=== PATIENT | female | born 1970 | race American Indian/Alaskan Native ===

== ENCOUNTER → 2016-08-05 | Outpatient (CLI) | payer OTHER ==
--- NOTE | 2016-08-05 11:17 | XR ---
EXAMINATION TYPE: XR shoulder complete RT DATE OF EXAM: 08/05/2016 11:13 AM CLINICAL HISTORY: Falling injury with right shoulder pain. TECHNIQUE: Three views of the right shoulder are obtained. COMPARISON: None. FINDINGS: There is no acute fracture/dislocation evident in the right shoulder. The acromioclavicul ar and glenohumeral joint spaces appear within normal limits. The visualized ribs are intact and unr emarkable. IMPRESSION: There is no acute fracture or dislocation in the right shoulder.
--- NOTE | 2016-08-05 11:31 | XR ---
Cervical spine HISTORY: Slip and fall, pain 5 views of the cervical spine and 6 images Cervical vertebral bodies show preserved height and alignment, bone mineralization. Disc spaces and p revertebral soft tissues are normal. No significant foraminal encroachment. IMPRESSION: No acute fracture or subluxation is evident
== END | disposition home or self-care (01) ==
LOC: LABWHC1 10:10
PROVIDERS: ATTEND Emergency Medicine
DX: N91.2 Amenorrhea, unspecified (principal); S43.401A Unspecified sprain of right shoulder joint, initial encounter
CPT/HCPCS: 72050; 81025

== ENCOUNTER → 2016-12-25 | Outpatient (CLI) | payer OTHER | END | disposition home or self-care (01) | LOC: RADXRMAIN 10:54 | PROVIDERS: ATTEND Internal Medicine | DX: Z53.9 Procedure and treatment not carried out, unspecified reason (principal) ==

== ENCOUNTER → 2017-02-16 | Outpatient (CLI) | payer OTHER ==
--- NOTE | 2017-02-16 16:02 | XR ---
Left foot HISTORY: Left foot pain 3 views of the left foot There is a plantar calcaneal spur. Enthesophyte present at the insertion of the Achilles tendon. Bone mineralization, joint spaces and alignment are maintained. There is mild hypertrophic change at the second metatarsophalangeal joint, first metatarsophalangeal joint. 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 Plantar calcane al spur.
== END | disposition home or self-care (01) ==
LOC: RADXRYALE 15:27
PROVIDERS: ATTEND Internal Medicine
DX: M19.072 Primary osteoarthritis, left ankle and foot (principal); M77.32 Calcaneal spur, left foot

== ENCOUNTER → 2020-03-29 | Outpatient (CLI) | payer OTHER | END | disposition home or self-care (01) | LOC: LABWHC1 11:25 | PROVIDERS: ATTEND Internal Medicine | DX: R05 Cough (principal); J00 Acute nasopharyngitis [common cold] | CPT/HCPCS: U0003; C9803 ==

== ENCOUNTER 2021-01-15 11:51 | Emergency (ER) | payer OTHER ==
[2021-01-15 12:12] VITALS: RESP 20
[2021-01-15] MEDS ORDERED: MORPHINE SULFATE 4 MG/ML SYRINGE IM STA (12:33)
--- NOTE | 2021-01-15 13:29 | XR ---
EXAMINATION TYPE: XR lumbar spine 2 or 3V DATE OF EXAM: 01/15/2021 COMPARISON: 12/25/2016 HISTORY: Chronic sciatica TECHNIQUE: 3 view lumbar spine FINDINGS: There is loss of disc height L5-S1. Remaining disc heights are preserved. Vertebral body he ights are preserved. Alignment is normal. There are 5 lumbar-type vertebral bodies. The pedicles are intact. No significant interval change is evident. IMPRESSION: 1. Degenerative disc changes L5-S1. 2. Stable exam
--- NOTE | 2021-01-15 13:50 | ED ---
Back Pain HPI - General Chief Complaint: Back Pain/Injury Stated Complaint: back pain Time Seen by Provider: 01/15/21 12:14 Source: patient, RN notes reviewed Limitations: no limitations - History of Present Illness Initial Comments: Patient is a 51-year-old female that presents to the emergency department complaining of chronic low back pain with radiation down the right leg. She notes that she got a cortisone injection by her primary care several days ago. She notes that since then the pain has increased. She notes that she has not had any recent injury or trauma to her low back. She notes that the pain is causing some nausea. She notes that she does not follow-up with a pain medicine doctor, a spinal surgeon, and has not done physical therapy in a while. She de nied any chest pain shortness of breath headache vomiting diarrhea constipation fever fatigue chills. Patient denied any saddle anesthesia, bowel incontinence or retention. - Related Data Allergies Allergy/AdvReac Type Severity Reaction Status Date / Time No Known Allergies Allergy Verified 01/15/21 12:07 Review of Systems ROS Statement: Those systems with pertinent positive or pertinent negative responses have been documented in the HPI. ROS Other: All systems not noted in ROS Statement are negative. Past Medical History Past Medical History: Diabetes Mellitus Additional Past Medical History / Comment(s): back pain History of Any Multi-Drug Resistant Organisms: None Reported Past Surgical History: Cholecystectomy Past Psychological History: No Psychological Hx Reported Smoking Status: Never smoker Past Alcohol Use History: None Reported Past Drug Use History: None Reported General Exam Limitations: no limitations General appearance: alert, in no apparent distress, obese Head exam: Present: atraumatic, normocephalic, normal inspection Eye exam: Present: normal appearance, PERRL, EOMI. Absent: scleral icterus, conjunctival injection, periorbital swelling Neck exam: Present: normal inspection Respiratory exam: Present: normal lung sounds bilaterally. Absent: respiratory distress, wheezes, rales, rhonchi, stridor Cardiovascular Exam: Present: regular rate, normal rhythm, normal heart sounds. Absent: systolic murmur, diastolic murmur, rubs, gallop, clicks Extremities exam: Present: normal inspection, full ROM, normal capillary refill. Absent: tenderness, pedal edema, joint swelling, calf tenderness Back exam: Present: normal inspection, tenderness (Right SI) Neurological exam: Present: alert, oriented X3 Psychiatric exam: Present: normal affect, normal mood Skin exam: Present: warm, dry, intact, normal color. Absent: rash Course Vital Signs 01/15/21 12:08 Temperature 98.3 F Pulse Rate 122 H Respiratory 20 Rate Blood Pressure 137/63 O2 Sat by Pulse 97 Oximetry Medical Decision Making - Medical Decision Making 51-year-old female complaining of low back pain with radicular symptoms down the right leg. X-ray lumbar spine, 125 mg of Solu-Medrol, 4 mg of morphine ordered. X-ray of the lumbar spine negative for any acute process. Case discussed with Dr. Carrizales, patient can discharge home with follow-up to neurology, client success specialist, primary care. - Radiology Data Radiology results: report reviewed, image reviewed Lumbar x-ray: There is loss of disc height at L5-S1 remaining disc heights are preserved. Vertebral body heights are preserved. Alignment is normal. There are 5 lumbar type vertebral bodies. The pedicles are intact. No significant interval changes evident. Disposition Clinical Impression: Sciatica, Lumbar radiculopathy Disposition: HOME SELF-CARE Condition: Stable Instructions (If sedation given, give patient instructions): Acute Low Back Pain (ED) Additional Instructions: Please return to the Emergency Department if symptoms worsen or any other concerns. Follow-up with primary care in the next 1-2 days get referral for physical therapy if needed. Follow-up with with [facility] client success [facility] in the next several days. Continue to follow-up with neurology. Follow-up with pain medicine doctor for chronic pain management. Is patient prescribed a controlled substance at d/c from ED?: No Referrals: Delisa Berg MD [Primary Care Provider] - 1-2 days Torito Hayward DO [Doctor of Osteopathic Medicine] - 1-2 days Joshua Huston MD [STAFF PHYSICIAN] - 1-2 days Time of Disposition: 13:50
[2021-01-15] MEDS ORDERED: ACET/COD 300 MG/30 MG STARTER PACK 6 TAB BTL PO STA (13:54)
[2021-01-15 14:49] VITALS: BP 146/88; PULSE 105; TEMP 97.3
== END 2021-01-15 14:49 | disposition home or self-care (01) ==
LOC: EC 11:51
DX: M54.16 Radiculopathy, lumbar region (principal); M54.41 Lumbago with sciatica, right side; R11.0 Nausea; G89.29 Other chronic pain; E11.9 Type 2 diabetes mellitus without complications; Z90.49 Acquired absence of other specified parts of digestive tract
CPT/HCPCS: 72100; 96372; 99283

== ENCOUNTER → 2021-04-04 | Outpatient (CLI) | payer OTHER ==
[2021-04-04 22:52] LABS: HCT 44.2 % (37.2-46.3); HGB 14.2 g/dL (12.0-15.0); MCH 28.4 pg (27.0-32.0); MCHC 32.1 g/dL (32.0-37.0); MCV 88.4 fL (80.0-97.0); Mean Platelet Volume 8.8 fL (9.5-12.2); Platelet Count 462 X 10*3/uL (140-440); WBC 12.76 X 10*3/uL (4.50-10.00)
[2021-04-05 00:27] LABS: African American GFR (CKD) 129.9 (60.0-200.0); Anion Gap 14.9 mmol/L (4.00-12.00); BUN/Creat Ratio 21.4 Ratio (12.00-20.00); Blood Urea Nitrogen 10.7 mg/dL (9.0-27.0); Calcium 9.8 mg/dL (8.7-10.3); Carbon Dioxide 24.1 mmol/L (21.6-31.8); Non-African American GFR(CKD) 112.1 (60.0-200.0); Potassium 4.3 mmol/L (3.5-5.5)
== END | disposition home or self-care (01) ==
LOC: LABWHC1 14:02
PROVIDERS: ATTEND Internal Medicine Cardiovascular Disease
DX: R00.0 Tachycardia, unspecified (principal)
CPT/HCPCS: 36415; 80048; 84443; 85027

== ENCOUNTER → 2021-11-14 | Outpatient (CLI) | payer OTHER ==
--- NOTE | 2021-11-19 07:26 | MM ---
Reason for Exam: Screening (asymptomatic). Last mammogram was performed 11 year(s) and 1 month(s) ago. Patient History: Menarche at age 11. Patient has no children. Paternal cousin had breast cancer, age 50. Paternal aunt had breast cancer, age 60. Risk Values: Fernanda 5 year model risk: 1.2%. NCI Lifetime model risk: 10.6%. Prior Study Comparison: 11/07/2010 Bilateral Screening Mammogram, [facility]. Tissue Density: The breast tissue is heterogeneously dense. This may lower the sensitivity of mammography. Findings: Analyzed By CAD. There is no suspicious group of microcalcifications or new suspicious mass in either breast. Overall Assessment: Negative, BI-RAD 1 Management: Screening Mammogram of both breasts in 1 year. A clinical breast exam by your physician is recommended on an annual basis and results should be correlated with mammographic findings. Electronically signed and approved by: Delfin Luis M.D. Radiologis
== END | disposition home or self-care (01) ==
LOC: RADMAMWWP 16:39
PROVIDERS: ATTEND Internal Medicine
DX: Z12.31 Encounter for screening mammogram for malignant neoplasm of breast (principal); Z80.3 Family history of malignant neoplasm of breast
CPT/HCPCS: 77067

== ENCOUNTER → 2023-01-07 | Outpatient (CLI) | payer OTHER ==
--- NOTE | 2023-01-07 15:29 | US ---
EXAMINATION TYPE: US liver DATE OF EXAM: 01/07/2023 COMPARISON: NONE CLINICAL INDICATION: Female, 53 years old with history of R94.5 ABNORMAL RESULTS OF LIVER FUNCTION ST UDIES; Elevated liver enzymes. Cholecystectomy. RUQ pain TECHNIQUE: Multiple sonographic images of the right upper quadrant are obtained. FINDINGS: EXAM MEASUREMENTS: Liver Length: 18.8 cm Gallbladder: Surgically absent CBD: 0.9 cm Right Kidney: 13.7 x 5.6 x 5.5 cm SCREEN CUTTER AND TRIMMER NOTES: *Technical limitations due to patient's body habitus and overlying bowel gas Unable Pancreas: Obscured by bowel gas Liver: attenuating. Unable to penetrate Gallbladder: Surgically absent Evidence for sonographic Paula's sign: no CBD: Dilated. Right Kidney: no evidence of hydronephrosis IMPRESSION: 1. Severe hepatic steatosis. Correlate with LFTs, lipid profile, patient risk factors. The degree of fatty infiltration limits assessment for focal lesions. 2. Bile duct dilated at 9 mm may be normal for the patient status post cholecystectomy.
--- NOTE | 2023-01-08 07:25 | MM ---
Reason for Exam: Screening (asymptomatic). Last mammogram was performed 1 year(s) and 1 month(s) ago. Patient History: Menarche at age 11. Patient has no children. Paternal cousin had breast cancer, age 50. Paternal aunt had breast cancer, age 60. Risk Values: Fernanda 5 year model risk: 1.3%. NCI Lifetime model risk: 10.3%. Prior Study Comparison: 11/07/2010 Bilateral Screening Mammogram, [facility]. 11/14/2021 Bilateral MG screening mammo w CAD, [facility]. Tissue Density: There are scattered fibroglandular densities. Findings: Analyzed By CAD. There is no suspicious group of microcalcifications or new suspicious mass in either breast. Overall Assessment: Benign, BI-RAD 2 Management: Screening Mammogram of both breasts in 1 year. . Patient should continue monthly self-breast exams. A clinical breast exam by your physician is recommended on an annual basis. This exam should not preclude additional follow-up of suspicious palpable abnormalities. Note on Fernanda scores and lifetime risk: 1. A Fernanda score greater than 3% is considered moderate risk. If this is the case, consider specialist referral to assess eligibility for a risk reducing agent. 2. If overall lifetime risk for the development of breast cancer is 20% or higher, the patient may qualify for future screening with alternating mammogram and breast MRI. Electronically signed and approved by: Delfin Luis M.D. Radiologis
== END | disposition home or self-care (01) ==
LOC: RADUSWWP 08:55
PROVIDERS: ATTEND Internal Medicine
DX: Z01.419 Encounter for gynecological examination (general) (routine) without abnormal findings (principal); Z12.31 Encounter for screening mammogram for malignant neoplasm of breast; K83.8 Other specified diseases of biliary tract; K76.0 Fatty (change of) liver, not elsewhere classified; R94.5 Abnormal results of liver function studies; Z80.3 Family history of malignant neoplasm of breast; Z90.49 Acquired absence of other specified parts of digestive tract
CPT/HCPCS: 76705; 77063; 77067

== ENCOUNTER 2024-02-25 23:52 | Observation (INO) | payer OTHER ==
[2024-02-26 02:37] LABS: Glucose,Whole Blood 341 mg/dL (70-110)
[2024-02-26 03:10] LABS: Basophils # (A) 0.1 k/uL (0-0.2); Basophils % (A) 1 %; Eosinophils # (A) 0.2 k/uL (0-0.7); Eosinophils % (A) 2 %; HCT 41.9 % (34.0-46.0); HGB 13.5 gm/dL (11.4-16.0); Lymphocytes # (A) 3.8 k/uL (1.0-4.8); Lymphocytes % (A) 37 %; MCH 27.1 pg (25.0-35.0); MCHC 32.3 g/dL (31.0-37.0); MCV 83.8 fL (80.0-100.0); Mean Platelet Volume 6.8; Monocytes # (A) 0.6 k/uL (0-1.0); Monocytes % (A) 6 %; Neutrophils # (A) 5.3 k/uL (1.3-7.7); Neutrophils % (A) 51 %; Platelet Count 428 k/uL (150-450); RDW 13.1 % (11.5-15.5); WBC 10.2 k/uL (3.8-10.6)
[2024-02-26] MEDS: INSULIN REGULAR 100 UNIT/ML VIAL (IV) IV ONE (03:20)
[2024-02-26] MEDS: SODIUM CHLORIDE 0.9% 1,000 ML IV STA (03:20)
[2024-02-26] MEDS: ASPIRIN 81 MG PO STA (03:22)
[2024-02-26 03:26] LABS: INR 0.9 (<1.2); Partial Thromboplastin Time 23.9 sec (22.0-30.0)
[2024-02-26 04:03] LABS: ALT 57 U/L (4-34); AST 44 U/L (14-36); African American GFR (CKD) >90 (>60 ml/min/1.73 sqM); Albumin 4.7 g/dL (3.5-5.0); Alkaline Phosphatase 198 U/L (38-126); Anion Gap 15 mmol/L; Blood Urea Nitrogen 12 mg/dL (7-17); Calcium 9.8 mg/dL (8.4-10.2); Carbon Dioxide 19 mmol/L (22-30); Chloride 99 mmol/L (98-107); Glucose 365 mg/dL (74-99); Magnesium 1.6 mg/dL (1.6-2.3); Non-African American GFR(CKD) >90 (>60 ml/min/1.73 sqM); Sodium 133 mmol/L (137-145); Total Bilirubin 0.5 mg/dL (0.2-1.3); Total Protein 7.6 g/dL (6.3-8.2)
--- NOTE | 2024-02-26 04:17 | ED ---
General Adult HPI - General Chief complaint: Recheck/Abnormal Lab/Rx Stated complaint: Diabetic Issues Time Seen by Provider: 02/26/24 02:36 Source: patient Mode of arrival: ambulatory Limitations: no limitations - History of Present Illness Initial comments: 54-year-old female with history of type 2 diabetes presenting with chief complaint of elevated blood sugar. Patient states that she normally does not check her blood sugar but states that today she was getting headache, blurred vision, and dry mouth. She states that when she checked her blood sugar the machine read high. She states that she has been under a lot of stress recently. She did take her Lantus late today. Patient also reports diarrhea, nausea, chest pain. Chest pain located on the left side with some radiation into the left arm. No difficulty breathing. No cough, congestion, sore throat. States that she is having dysuria and urinary urgency and frequency. No fevers or chills. - Related Data Home Medications Medication Instructions Recorded Confirmed ALPRAZolam [Xanax] 0.25 mg PO BID PRN 02/26/24 02/26/24 Cyclobenzaprine [Flexeril] 10 mg PO DAILY 02/26/24 02/26/24 Ergocalciferol (Vitamin D2) 1,250 mcg PO MO 02/26/24 02/26/24 [Drisdol (50,000 Iu)] Insulin Glargine,Hum.rec.anlog 40 units SQ DAILY 02/26/24 02/26/24 [Lantus Solostar Pen] Meloxicam [Mobic] 7.5 mg PO DAILY PRN 02/26/24 02/26/24 Metoprolol Succinate (ER) [Toprol 25 mg PO DAILY 02/26/24 02/26/24 Xl] Omeprazole [PriLOSEC] 20 mg PO DAILY 02/26/24 02/26/24 Pioglitazone [Actos] 15 mg PO DAILY 02/26/24 02/26/24 lisinopriL [Zestril] 10 mg PO DAILY 02/26/24 02/26/24 metFORMIN HCL [Glucophage] 1,000 mg PO BID 02/26/24 02/26/24 Allergies Allergy/AdvReac Type Severity Reaction Status Date / Time No Known Allergies Allergy Verified 02/26/24 09:06 Review of Systems ROS Statement: Those systems with pertinent positive or pertinent negative responses have been documented in the HPI. ROS Other: All systems not noted in ROS Statement are negative. Past Medical History Past Medical History: Diabetes Mellitus Additional Past Medical History / Comment(s): back pain History of Any Multi-Drug Resistant Organisms: None Reported Past Surgical History: Cholecystectomy Past Psychological History: No Psychological Hx Reported Smoking Status: Never smoker Past Alcohol Use History: None Reported Past Drug Use History: None Reported General Exam Limitations: no limitations General appearance: alert, in no apparent distress Head exam: Present: atraumatic, normocephalic Eye exam: Present: normal appearance, EOMI Neck exam: Present: normal inspection. Absent: meningismus Respiratory exam: Present: normal lung sounds bilaterally. Absent: respiratory distress, wheezes, rales, rhonchi, stridor Cardiovascular Exam: Present: regular rate, normal rhythm, normal heart sounds. Absent: systolic murmur, diastolic murmur, rubs, gallop, clicks Neurological exam: Present: alert, oriented X3 Psychiatric exam: Present: normal affect, normal mood Skin exam: Present: warm, dry Course Vital Signs 02/25/24 02/26/24 02/26/24 23:53 02:41 06:44 Temperature 97.9 F Pulse Rate 111 H 100 97 Respiratory 20 18 18 Rate Blood Pressure 162/77 140/82 130/69 O2 Sat by Pulse 98 97 97 Oximetry 02/26/24 02/26/24 09:07 13:04 Temperature 98.6 F 97.6 F Pulse Rate 94 101 H Respiratory 18 20 Rate Blood Pressure 126/60 143/72 O2 Sat by Pulse 96 95 Oximetry Medical Decision Making - Medical Decision Making Was pt. sent in by a medical professional or institution (, PA, [employer], urgent care, hospital, or intermediate...) When possible be specific @ -No Did you speak to anyone other than the patient for history (EMS, parent, family, police, friend...)? What history was obtained from this source @ -No Did you review nursing and triage notes (agree or disagree)? Why? @ -I reviewed and agree with nursing and triage notes Were old charts reviewed (outside hosp., previous admission, EMS record, old EKG, old radiological studies, urgent care reports/EKG's, intermediate records)? Report findings @ -No old charts were reviewed Differential Diagnosis (chest pain, altered mental status, abdominal pain women, abdominal pain men, vaginal bleeding, weakness, fever, dyspnea, syncope, headache, dizziness, GI bleed, back pain, seizure, CVA, palpatations, mental health, musculoskeletal)? @ -[facility] Differential Chest Pain: Stable Angina, Unstable Angina, STEMI, NSTEMI Aortic Dissection, Pneumothorax, Musculoskeletal, Esophageal Spasm GERD, Cholecystitis, Pancreatitis, Zoster This is not meant to be an all-inclusive list. EKG interpreted by me (3pts min.). @ -Sinus tachycardia ventricular rate 100. SD interval 134. QRS 93. QT 351. QTc 408. No ST deviation X-rays interpreted by me (1pt min.). @ -Chest x-ray shows no acute process CT interpreted by me (1pt min.). @ -None done U/S interpreted by me (1pt. min.). @ -None done What testing was considered but not performed or refused? (CT, X-rays, U/S, labs)? Why? @ -None What meds were considered but not given or refused? Why? @ -None Did you discuss the management of the patient with other professionals (professionals i.e. , PA, [employer] TE[employer], lab, RT, psych nurse, social work professor, evaluation advisor, teacher, promotions officer, telephonic case manager)? Give summary @ -My attending spoke with the [facility] provider on-call who accepts admission Was smoking cessation discussed for >3mins.? @ -No Was critical care preformed (if so, how long)? @ -No Were there social determinants of health that impacted care today? How? (Homelessness, low income, unemployed, alcoholism, drug addiction, transportation, low edu. Level, literacy, decrease access to med. care, group home, rehab)? @ -No Was there de-escalation of care discussed even if they declined (Discuss DNR or withdrawal of care, Hospice)? DNR status @ -No What co-morbidities impacted this encounter? (DM, HTN, Smoking, COPD, CAD, Cancer, CVA, ARF, Chemo, Hep., AIDS, mental health diagnosis, sleep apnea, morbid obesity)? @ -None Was patient admitted / discharged? Hospital course, mention meds given and route, prescriptions, significant lab abnormalities, going to OR and other pertinent info. @ -54-year-old female presenting with chief complaint of elevated blood sugar. Also complaining of chest pain. History and physical examination are conducted. Blood sugar is initially 341. Patient is given 8 units insulin IV. He was also started on 1 L fluid bolus and maintenance rate of 200 mL/h. Negative troponin. Chest x-ray shows no acute process and EKG shows no ischemic changes. Patient will be admitted for observation given her chest pain. She is agreeable with this plan. I discussed this case with my attending Dr. [place] Undiagnosed new problem with uncertain prognosis? @ -No Drug Therapy requiring intensive monitoring for toxicity (Heparin, Nitro, Insulin, Cardizem)? @ -No Were any procedures done? @ -No Diagnosis/symptom? @ -Chest pain Acute, or Chronic, or Acute on Chronic? @ -Acute Uncomplicated (without systemic symptoms) or Complicated (systemic symptoms)? @ -Complicated Side effects of treatment? @ -No Exacerbation, Progression, or Severe Exacerbation? @ -No Poses a threat to life or bodily function? How? (Chest pain, [place], [place], pneumonia, PE, COPD, DKA, ARF, appy, cholecystitis, CVA, Diverticulitis, Homicidal, Suicidal, threat to staff... and all critical care pts) @ -Yes - Lab Data Result diagrams: 02/26/24 02:58 02/26/24 02:58 Lab Results 02/26/24 02/26/24 02/26/24 Range/Units 02:35 02:58 02:58 WBC 10.2 (3.8-10.6) k/uL RBC 5.00 (3.80-5.40) m/uL Hgb 13.5 (11.4-16.0) gm/dL Hct 41.9 (34.0-46.0) % MCV 83.8 (80.0-100.0) fL MCH 27.1 (25.0-35.0) pg MCHC 32.3 (31.0-37.0) g/dL RDW 13.1 (11.5-15.5) % Plt Count 428 (150-450) k/uL MPV 6.8 Neutrophils % 51 % Lymphocytes % 37 % Monocytes % 6 % Eosinophils % 2 % Basophils % 1 % Neutrophils # 5.3 (1.3-7.7) k/uL Lymphocytes # 3.8 (1.0-4.8) k/uL Monocytes # 0.6 (0-1.0) k/uL Eosinophils # 0.2 (0-0.7) k/uL Basophils # 0.1 (0-0.2) k/uL PT 10.0 (10.0-12.5) sec INR 0.9 (<1.2) APTT 23.9 (22.0-30.0) sec Sodium (137-145) mmol/L Potassium (3.5-5.1) mmol/L Chloride (98-107) mmol/L Carbon Dioxide (22-30) mmol/L Anion Gap mmol/L BUN (7-17) mg/dL Creatinine (0.52-1.04) mg/dL Est GFR (CKD-EPI)AfAm (>60 ml/min/1.73 sqM) Est GFR (CKD-EPI)NonAf (>60 ml/min/1.73 sqM) Glucose (74-99) mg/dL POC Glucose (mg/dL) 341 H (70-110) mg/dL POC Glu Hand Bootmaker ID César Hinson Calcium (8.4-10.2) mg/dL Magnesium (1.6-2.3) mg/dL Total Bilirubin (0.2-1.3) mg/dL AST (14-36) U/L ALT (4-34) U/L Alkaline Phosphatase (38-126) U/L Troponin I (0.000-0.034) ng/mL Total Protein (6.3-8.2) g/dL Albumin (3.5-5.0) g/dL 02/26/24 02/26/24 Range/Units 02:58 02:58 WBC (3.8-10.6) k/uL RBC (3.80-5.40) m/uL Hgb (11.4-16.0) gm/dL Hct (34.0-46.0) % MCV (80.0-100.0) fL MCH (25.0-35.0) pg MCHC (31.0-37.0) g/dL RDW (11.5-15.5) % Plt Count (150-450) k/uL MPV Neutrophils % % Lymphocytes % % Monocytes % % Eosinophils % % Basophils % % Neutrophils # (1.3-7.7) k/uL Lymphocytes # (1.0-4.8) k/uL Monocytes # (0-1.0) k/uL Eosinophils # (0-0.7) k/uL Basophils # (0-0.2) k/uL PT (10.0-12.5) sec INR (<1.2) APTT (22.0-30.0) sec Sodium 133 L (137-145) mmol/L Potassium 4.0 (3.5-5.1) mmol/L Chloride 99 (98-107) mmol/L Carbon Dioxide 19 L (22-30) mmol/L Anion Gap 15 mmol/L BUN 12 (7-17) mg/dL Creatinine 0.43 L (0.52-1.04) mg/dL Est GFR (CKD-EPI)AfAm >90 (>60 ml/min/1.73 sqM) Est GFR (CKD-EPI)NonAf >90 (>60 ml/min/1.73 sqM) Glucose 365 H (74-99) mg/dL POC Glucose (mg/dL) (70-110) mg/dL POC Glu Hand Bootmaker ID Calcium 9.8 (8.4-10.2) mg/dL Magnesium 1.6 (1.6-2.3) mg/dL Total Bilirubin 0.5 (0.2-1.3) mg/dL AST 44 H (14-36) U/L ALT 57 H (4-34) U/L Alkaline Phosphatase 198 H (38-126) U/L Troponin I <0.012 (0.000-0.034) ng/mL Total Protein 7.6 (6.3-8.2) g/dL Albumin 4.7 (3.5-5.0) g/dL Disposition Clinical Impression: Chest pain Disposition: ADMITTED IP TO THIS HOSP Condition: Fair Time of Disposition: 04:39
[2024-02-26] MEDS ORDERED: NALOXONE 0.4 MG/ML 1 ML VIAL IV PRN (04:38)
[2024-02-26] MEDS: SODIUM CHLORIDE 0.9% 1,000 ML IV SCH (06:43)
[2024-02-26] MEDS: ACETAMINOPHEN TAB 325 MG TAB PO PRN (06:43)
[2024-02-26 06:52] LABS: Glucose,Whole Blood 328 mg/dL (70-110)
--- NOTE | 2024-02-26 07:03 | XR ---
EXAMINATION TYPE: XR chest 2V DATE OF EXAM: 02/26/2024 6:15 AM CLINICAL INDICATION: Female, 54 years old with history of Chest Pain; [facility] COMPARISON: Chest radiographs from 04/27/2013 TECHNIQUE: XR chest 2V Frontal view of the chest. FINDINGS: Lungs/Pleura: There is no evidence of pleural effusion, focal consolidation, or pneumothorax. Pulmonary vascularity: Unremarkable. Heart/mediastinum: Cardiomediastinal silhouette is unremarkable. Musculoskeletal: No acute osseous pathology. Other findings: None IMPRESSION: No acute cardiopulmonary disease/process.
[2024-02-26] MEDS ORDERED: ALPRAZolam 0.25 MG TAB PO PRN (10:46)
[2024-02-26 10:47] LABS: Appearance,Urine Clear (Clear); Bilirubin,Urine Negative (Negative); Blood,Urine Negative (Negative); Color,Urine Light Yellow; Glucose,Urine (UA) 4+ (Negative); Leukocyte Esterase,Urine Negative (Negative); Nitrite,Urine Negative (Negative); PH, Urine 5.5 (5.0-8.0); Protein,Urine Negative (Negative); Specific Gravity,Urine 1.042 (1.001-1.035); Urobilinogen,Urine <2.0 mg/dL (<2.0)
[2024-02-26 10:50] LABS: Ketones,Urine 2+ (Negative)
--- NOTE | 2024-02-26 10:57 | P.HPIM ---
History of Present Illness H&P Date: 02/26/24 Chief Complaint: Chest pain 54-year-old female, history of hypertension, diabetes mellitus 2, DJD/back pain, presenting with chief complaint of elevated blood sugar. Patient states that she normally does not check her blood sugar but states that today she was getting headache, blurred vision, and dry mouth. She states that when she checked her blood sugar the machine read high. She states that she has been under a lot of stress recently. She did take her Lantus late today. Patient also reports diarrhea, nausea, chest pain. Chest pain located on the left side with some radiation into the left arm. No difficulty breathing. No cough, congestion, sore throat. States that she is having dysuria and urinary urgency and frequency. No fevers or chills. Blood work completed in ED reveals a WBC of 10.2, hemoglobin of 13.5 and platelet count of 428, sodium 133, potassium 4.0, BUNs/creatinine of 12/0.43 and blood glucose of 365, troponin is less than 0.012 Review of Systems REVIEW OF SYSTEMS: CONSTITUTIONAL: No fever, no malaise, no fatigue. HEENT: No recent visual problems or hearing problems. Denied any sore throat. CARDIOVASCULAR: No chest pain, orthopnea, PND, no palpitations, no syncope. PULMONARY: No shortness of breath, no cough, no hemoptysis. GASTROINTESTINAL: No diarrhea, no nausea, no vomiting, no abdominal pain. NEUROLOGICAL: No headaches, no weakness, no numbness. HEMATOLOGICAL: Denies any bleeding or petechiae. GENITOURINARY: Denies any burning micturition, frequency, or urgency. MUSCULOSKELETAL/RHEUMATOLOGICAL: Denies any joint pain, swelling, or any muscle pain. ENDOCRINE: Denies any polyuria or polydipsia. The rest of the 14-point review of systems is negative. Past Medical History Past Medical History: Diabetes Mellitus Additional Past Medical History / Comment(s): back pain History of Any Multi-Drug Resistant Organisms: None Reported Past Surgical History: Cholecystectomy Past Psychological History: No Psychological Hx Reported Smoking Status: Never smoker Past Alcohol Use History: None Reported Past Drug Use History: None Reported Medications and Allergies Home Medications Medication Instructions Recorded Confirmed Type ALPRAZolam [Xanax] 0.25 mg PO BID PRN 02/26/24 02/26/24 History Cyclobenzaprine [Flexeril] 10 mg PO DAILY 02/26/24 02/26/24 History Ergocalciferol (Vitamin D2) 1,250 mcg PO MO 02/26/24 02/26/24 History [Drisdol (50,000 Iu)] Insulin Glargine,Hum.rec.anlog 40 units SQ DAILY 02/26/24 02/26/24 History [Lantus Solostar Pen] Meloxicam [Mobic] 7.5 mg PO DAILY PRN 02/26/24 02/26/24 History Metoprolol Succinate (ER) [Toprol 25 mg PO DAILY 02/26/24 02/26/24 History Xl] Omeprazole [PriLOSEC] 20 mg PO DAILY 02/26/24 02/26/24 History Pioglitazone [Actos] 15 mg PO DAILY 02/26/24 02/26/24 History lisinopriL [Zestril] 10 mg PO DAILY 02/26/24 02/26/24 History metFORMIN HCL [Glucophage] 1,000 mg PO BID 02/26/24 02/26/24 History Allergies Allergy/AdvReac Type Severity Reaction Status Date / Time No Known Allergies Allergy Verified 02/26/24 09:06 Physical Exam Vitals: Vital Signs Temp Pulse Resp BP Pulse Ox 02/26/24 09:07 98.6 F 94 18 126/60 96 02/26/24 06:44 97 18 130/69 97 02/26/24 02:41 100 18 140/82 97 02/25/24 23:53 97.9 F 111 H 20 162/77 98 Intake and Output 02/25/24 02/26/24 02/26/24 22:59 06:59 14:59 Other: Weight 127.006 kg General appearance: alert, in no apparent distress Head exam: Present: atraumatic, normocephalic Eye exam: Present: normal appearance, EOMI Neck exam: Present: normal inspection. Absent: meningismus Respiratory exam: Present: normal lung sounds bilaterally. Absent: respiratory distress, wheezes, rales, rhonchi, stridor Cardiovascular Exam: Present: regular rate, normal rhythm, normal heart sounds. Absent: systolic murmur, diastolic murmur, rubs, gallop, clicks Neurological exam: Present: alert, oriented X3 Psychiatric exam: Present: normal affect, normal mood Skin exam: Present: warm, dry Results CBC & Chem 7: 02/26/24 02:58 02/26/24 02:58 Labs: Abnormal Lab Results - Last 24 Hours (Table) 02/26/24 02/26/24 02/26/24 Range/Units 02:35 02:58 06:50 Sodium 133 L (137-145) mmol/L Carbon Dioxide 19 L (22-30) mmol/L Creatinine 0.43 L (0.52-1.04) mg/dL Glucose 365 H (74-99) mg/dL POC Glucose (mg/dL) 341 H 328 H (70-110) mg/dL AST 44 H (14-36) U/L ALT 57 H (4-34) U/L Alkaline Phosphatase 198 H (38-126) U/L Assessment and Plan Assessment: 1. Chest pain rule out acute coronary syndrome -Patient has been admitted to telemetry; monitor EKG and cycle troponins -- Recommend 2D echo -Cardiology has been consulted 2. Hypertension; continue with home dose of lisinopril 10 mg daily and metoprolol succinate 25 mg daily 3. Diabetes mellitus type 2 with long-term insulin use/hyperglycemia -Patient uses insulin glargine 40 units daily along with Actos 15 mg daily -Long-acting insulin placed on hold while in hospital' we will monitor Accu- Cheks q. ACH S with insulin sliding scale 4. Anxiety; continue with home dose of Xanax 5. Vitamin D deficiency; patient will continue with supplement outpatient VTE prophylaxis; SCDs CODE STATUS; full code
[2024-02-26 12:34] LABS: Glucose,Whole Blood 383 mg/dL (70-110)
[2024-02-26] MEDS ORDERED: DEXTROSE 50% SYRINGE 50 ML IVP PRN ×2 (12:35)
[2024-02-26] MEDS: INSULIN ASPART (NovoLOG) 100 UNIT/ML VIAL SQ SCH (13:02)
[2024-02-26] MEDS: IBUPROFEN 600 MG TAB PO PRN (13:47)
--- NOTE | 2024-02-26 16:36 | P.CRDCN ---
History of Present Illness Consult date: 02/26/24 History of present illness: The patient is a very pleasant 54-year-old female patient with a past medical history significant for overweight as well as diabetes and hypertension and dyslipidemia presented to the hospital complaining of uncontrolled diabetes and elevated blood glucose. The patient currently is under a lot of stress taking care of multiple family member as well as stress related to job and affordability of her medications including the insulin. She has not been compliant in taking her diabetic medications including insulin intermittently because she could not afford some of them. She noticed that her glucose in the blood has been severely elevated and reaching almost 400. She decided to come for further evaluation. She was experiencing symptoms of pressure in the head and sometimes she reports intermittent episode of chest discomfort appears to be overall atypical. No shortness of breath and no dizziness or lightheadedness and no feeling of heart racing or fluttering and no presyncope or syncope and no edema in the lower extremities. Further investigation performed including blood work showed severely elevated glucose and also she underwent troponin with 3 sets came in to be unremarkable and EKG showing sinus mechanism with no s ignificant ST or T wave abnormalities. No history of coronary artery disease or congestive heart failure or cardiac arrhythmia and never seen a medical photographer before. Her pressure appears to be under good control on the current dose of lisinopril which she is on. The physical examination is remarkable for stable vital signs with regular rate and rhythm and distant heart sounds and clear breathing sounds bilaterally and no edema was noted in the lower extremities Assessment Uncontrolled diabetes Noncompliance with medications secondary to affordability Atypical versus noncardiac chest discomfort Multiple comorbid conditions Plan Acute coronary event was ruled out Currently the patient is asymptomatic I would not advise any further cardiac workup at this point probably she will benefit from stress probably as an outpatient Monitor the patient for additional 24-hour Past Medical History Past Medical History: Diabetes Mellitus Additional Past Medical History / Comment(s): back pain, herniated disc/bulges History of Any Multi-Drug Resistant Organisms: None Reported Past Surgical History: Cholecystectomy Past Psychological History: No Psychological Hx Reported Smoking Status: Never smoker Past Alcohol Use History: None Reported Past Drug Use History: None Reported Medications and Allergies Home Medications Medication Instructions Recorded Confirmed Type ALPRAZolam [Xanax] 0.25 mg PO BID PRN 02/26/24 02/26/24 History Cyclobenzaprine [Flexeril] 10 mg PO DAILY 02/26/24 02/26/24 History Ergocalciferol (Vitamin D2) 1,250 mcg PO MO 02/26/24 02/26/24 History [Drisdol (50,000 Iu)] Insulin Glargine,Hum.rec.anlog 40 units SQ DAILY 02/26/24 02/26/24 History [Lantus Solostar Pen] Meloxicam [Mobic] 7.5 mg PO DAILY PRN 02/26/24 02/26/24 History Metoprolol Succinate (ER) [Toprol 25 mg PO DAILY 02/26/24 02/26/24 History Xl] Omeprazole [PriLOSEC] 20 mg PO DAILY 02/26/24 02/26/24 History Pioglitazone [Actos] 15 mg PO DAILY 02/26/24 02/26/24 History lisinopriL [Zestril] 10 mg PO DAILY 02/26/24 02/26/24 History metFORMIN HCL [Glucophage] 1,000 mg PO BID 02/26/24 02/26/24 History Allergies Allergy/AdvReac Type Severity Reaction Status Date / Time No Known Allergies Allergy Verified 02/26/24 09:06 Physical Exam Vitals: Vital Signs Temp Pulse Pulse Resp BP BP Pulse Ox 02/26/24 13:18 97.9 F 104 H 16 125/81 97 02/26/24 13:04 97.6 F 101 H 20 143/72 95 02/26/24 09:07 98.6 F 94 18 126/60 96 02/26/24 06:44 97 18 130/69 97 02/26/24 02:41 100 18 140/82 97 02/25/24 23:53 97.9 F 111 H 20 162/77 98 Intake and Output 02/26/24 02/26/24 02/26/24 06:59 14:59 22:59 Other: # Voids 1 Weight 127.006 kg 127.006 kg Results 02/26/24 02:58 02/26/24 02:58 Cardiac Enzymes 02/26/24 02/26/24 02/26/24 Range/Units 02:58 02:58 06:38 AST 44 H (14-36) U/L Troponin I <0.012 <0.012 (0.000-0.034) ng/mL 02/26/24 Range/Units 09:29 AST (14-36) U/L Troponin I <0.012 (0.000-0.034) ng/mL Coagulation 02/26/24 Range/Units 02:58 PT 10.0 (10.0-12.5) sec APTT 23.9 (22.0-30.0) sec CBC 02/26/24 Range/Units 02:58 WBC 10.2 (3.8-10.6) k/uL RBC 5.00 (3.80-5.40) m/uL Hgb 13.5 (11.4-16.0) gm/dL Hct 41.9 (34.0-46.0) % Plt Count 428 (150-450) k/uL Comprehensive Metabolic Panel 02/26/24 Range/Units 02:58 Sodium 133 L (137-145) mmol/L Potassium 4.0 (3.5-5.1) mmol/L Chloride 99 (98-107) mmol/L Carbon Dioxide 19 L (22-30) mmol/L BUN 12 (7-17) mg/dL Creatinine 0.43 L (0.52-1.04) mg/dL Glucose 365 H (74-99) mg/dL Calcium 9.8 (8.4-10.2) mg/dL AST 44 H (14-36) U/L ALT 57 H (4-34) U/L Alkaline Phosphatase 198 H (38-126) U/L Total Protein 7.6 (6.3-8.2) g/dL Albumin 4.7 (3.5-5.0) g/dL Current Medications Generic Name Dose Route Start Last Admin Trade Name Erickq PRN Reason Stop Dose Admin Acetaminophen 650 mg 02/26/24 04:38 02/26/24 06:43 Acetaminophen Tab 325 Mg Tab PO 650 mg Q6HR PRN Administration Mild Pain or Fever > 100.5 Alprazolam 0.25 mg 02/26/24 10:46 Alprazolam 0.25 Mg Tab PO BID PRN Anxiety Cyclobenzaprine HCl 10 mg 02/27/24 09:00 Cyclobenzaprine 10 Mg Tab PO DAILY DIANA Dextrose/Water 25 ml 02/26/24 12:35 Dextrose 50% Syringe 50 Ml IVP PER PROTOCOL PRN Hypoglycemia Protocol Dextrose/Water 50 ml 02/26/24 12:35 Dextrose 50% Syringe 50 Ml IVP PER PROTOCOL PRN Hypoglycemia Protocol Sodium Chloride 1,000 mls @ 10 mls/hr 02/26/24 04:45 02/26/24 16:26 Saline 0.9% IV Not Given .Q24H DIANA Ibuprofen 600 mg 02/26/24 13:33 02/26/24 13:47 Ibuprofen 600 Mg Tab PO 600 mg QID PRN Administration Mild Pain (Scale 1 to 3) Insulin Aspart 0 unit 02/26/24 12:45 02/26/24 13:02 Insulin Aspart (Novolog) 100 Unit/Ml Vial SQ 15 unit ACHS DIANA Administration Protocol Lisinopril 10 mg 02/27/24 09:00 Lisinopril 10 Mg Tab PO DAILY [facility] Metoprolol Succinate 25 mg 02/27/24 09:00 Metoprolol Succinate (Er) 25 Mg Tab.Er.24h PO DAILY [facility] Naloxone HCl 0.2 mg 02/26/24 04:38 Naloxone 0.4 Mg/Ml 1 Ml Vial IV Q2M PRN Opioid Reversal Pantoprazole Sodium 40 mg 02/27/24 07:30 Pantoprazole 40 Mg Tablet PO AC-BRKFST [facility] Intake and Output 02/26/24 02/26/24 02/26/24 06:59 14:59 22:59 Other: # Voids 1 Weight 127.006 kg 127.006 kg Patient Weight 02/27/24 06:59 Weight 127.006 kg 02/26/24 02:58 02/26/24 02:58
[2024-02-26 17:13] LABS: Glucose,Whole Blood 265 mg/dL (70-110)
[2024-02-26 20:46] LABS: Glucose,Whole Blood 279 mg/dL (70-110)
[2024-02-26 22:31] LABS: Glucose,Whole Blood 278 mg/dL (70-110)
[2024-02-27 02:27] VITALS: RESP 16
[2024-02-27 06:20] LABS: Glucose,Whole Blood 288 mg/dL (70-110)
[2024-02-27] MEDS: PANTOPRAZOLE 40 MG TABLET PO SCH (06:54)
[2024-02-27 07:50] VITALS: BP 115/69; PULSE 56; TEMP 97.8
[2024-02-27] MEDS: CYCLOBENZAPRINE 10 MG TAB PO SCH (07:50)
[2024-02-27] MEDS: lisinopriL 10 MG TAB PO SCH (07:50)
[2024-02-27] MEDS: METOPROLOL SUCCINATE (ER) 25 MG TAB.ER.24H PO SCH (07:50)
[2024-02-27 09:29] LABS: Blood Urea Nitrogen 7.3 mg/dL (9.0-27.0); Calcium 8.8 mg/dL (8.7-10.3); Carbon Dioxide 23.7 mmol/L (21.6-31.8); Chloride 102 mmol/L (96-109); Glucose 257 mg/dL (70-110); Potassium 4.1 mmol/L (3.5-5.5); Sodium 138 mmol/L (135-145)
[2024-02-27 11:26] LABS: Glucose,Whole Blood 349 mg/dL (70-110)
--- NOTE | 2024-02-27 11:41 | P.PN ---
Subjective Progress Note Date: 02/27/24 The patient is a very pleasant 54-year-old female patient with a past medical history significant for overweight as well as diabetes and hypertension and dyslipidemia presented to the hospital complaining of uncontrolled diabetes and elevated blood glucose. The patient currently is under a lot of stress taking care of multiple family member as well as stress related to job and affordability of her medications including the insulin. She has not been compliant in taking her diabetic medications including insulin intermittently because she could not afford some of them. She noticed that her glucose in the blood has been severely elevated and reaching almost 400. She decided to come for further evaluation. She was experiencing symptoms of pressure in the head and sometimes she reports intermittent episode of chest discomfort appears to be overall atypical. No shortness of breath and no dizziness or lightheadedness and no feeling of heart racing or fluttering and no presyncope or syncope and no edema in the lower extremities. Further investigation performed including blood work showed severely elevated glucose and also she underwent troponin with 3 sets came in to be unremarkable and EKG showing sinus mechanism with no significant ST or T wave abnormalities. No history of coronary artery disease or congestive heart failure or cardiac arrhythmia and never seen a entry level project coordinator before. Her pressure appears to be under good control on the current dose of lisinopril which she is on. The physical examination is remarkable for stable vital signs with regular rate and rhythm and distant heart sounds and clear breathing sounds bilaterally and no edema was noted in the lower extremities February 27, 2024 Overall she is feeling better. No more symptoms of any chest pain or chest discomfort or shortness of breath. Hemodynamically she is stable with good blood pressure and heart rate. The examination is remarkable for regular rhythm with a soft systolic murmur at the left upper sternal border with clear breathing sounds bilaterally and no edema was noted. Assessment Uncontrolled diabetes Noncompliance with medications secondary to affordability Atypical versus noncardiac chest discomfort Multiple comorbid conditions Plan Acute coronary event was ruled out Currently the patient is asymptomatic Consider obtaining an echocardiogram and stress test either as an inpatient or as an outpatient. Objective - Vital Signs Vital signs: Vital Signs Temp 97.8 F 02/27/24 07:50 Pulse 56 L 02/27/24 07:50 Resp 16 02/27/24 07:50 BP 115/69 02/27/24 07:50 Pulse Ox 97 02/27/24 07:50 FiO2 Intake & Output 02/26/24 02/27/24 02/27/24 18:59 06:59 18:59 Intake Total 118 236 Output Total 1 Balance 118 -1 236 Weight 127.006 kg Intake: Oral 118 236 Output: Urine 1 Other: # Voids 1 2 - Labs CBC & Chem 7: 02/26/24 02:58 02/27/24 02:18 Labs: Abnormal Lab Results - Last 24 Hours (Table) 02/26/24 02/26/24 02/26/24 Range/Units 12:32 17:12 20:43 Anion Gap (4.00-12.00) mmol/L BUN (9.0-27.0) mg/dL Creatinine (0.6-1.5) mg/dL Glucose (70-110) mg/dL POC Glucose (mg/dL) 383 H 265 H 279 H (70-110) mg/dL Hemoglobin A1c (<=6.0) % 02/26/24 02/27/24 02/27/24 Range/Units 22:30 02:18 02:18 Anion Gap 12.30 H (4.00-12.00) mmol/L BUN 7.3 L (9.0-27.0) mg/dL Creatinine 0.5 L (0.6-1.5) mg/dL Glucose 257 H (70-110) mg/dL POC Glucose (mg/dL) 278 H (70-110) mg/dL Hemoglobin A1c 11.3 H (<=6.0) % 02/27/24 02/27/24 Range/Units 06:19 11:25 Anion Gap (4.00-12.00) mmol/L BUN (9.0-27.0) mg/dL Creatinine (0.6-1.5) mg/dL Glucose (70-110) mg/dL POC Glucose (mg/dL) 288 H 349 H (70-110) mg/dL Hemoglobin A1c (<=6.0) %
== END 2024-02-27 13:05 | disposition home or self-care (01) ==
LOC: EC 23:52 → 6NMEDSUR 02-26 04:38
PROVIDERS: ADMIT Hospitalist; ATTEND Hospitalist
DX: R07.89 Other chest pain (principal); E11.65 Type 2 diabetes mellitus with hyperglycemia; I10 Essential (primary) hypertension; E78.5 Hyperlipidemia, unspecified; F41.9 Anxiety disorder, unspecified; E55.9 Vitamin D deficiency, unspecified; Z79.1 Long term (current) use of non-steroidal anti-inflammatories (NSAID); Z91.141 Patient's other noncompliance with medication regimen due to financial hardship; Z79.4 Long term (current) use of insulin; Z79.84 Long term (current) use of oral hypoglycemic drugs; Z79.899 Other long term (current) drug therapy
CPT/HCPCS: 36415; 71046; 80048; 80053; 81003; 83036; 83735; 84484; 85025; 85610; 85730; 93005; 96360; 96361; 99285

== ENCOUNTER 2024-08-14 09:15 | Emergency (ER) | payer OTHER ==
[2024-08-14 09:48] VITALS: TEMP 98
--- NOTE | 2024-08-14 10:23 | ED ---
ENT HPI - General Chief complaint: ENT Stated complaint: right eye broken blood vessel and pressure in head Time Seen by Provider: 08/14/24 10:20 Source: patient, RN notes reviewed Mode of arrival: ambulatory Limitations: no limitations - History of Present Illness Initial comments: 54-year-old female with history of diabetes presenting for right eye redness x 1 day. States 2 days ago she began to experience pressure right eye radiating to the back of the head. She has been taking Tylenol however symptoms have persisted. This morning, she noticed a red spot in the right eye. Denies direct eye pain, foreign body sensation, changes in the vision. She does not wear contact or glasses. Denies numbness, tingling, or weakness in any extremities. Denies blood thinners. - Related Data Home Medications Medication Instructions Recorded Confirmed ALPRAZolam [Xanax] 0.25 mg PO BID PRN 02/26/24 02/26/24 Cyclobenzaprine [Flexeril] 10 mg PO DAILY 02/26/24 02/26/24 Ergocalciferol (Vitamin D2) 1,250 mcg PO MO 02/26/24 02/26/24 [Drisdol (50,000 Iu)] Insulin Glargine,Hum.rec.anlog 40 units SQ DAILY 02/26/24 02/26/24 [Lantus Solostar Pen] Meloxicam [Mobic] 7.5 mg PO DAILY PRN 02/26/24 02/26/24 Metoprolol Succinate (ER) [Toprol 25 mg PO DAILY 02/26/24 02/26/24 XL] Omeprazole [PriLOSEC] 20 mg PO DAILY 02/26/24 02/26/24 Pioglitazone [Actos] 15 mg PO DAILY 02/26/24 02/26/24 lisinopriL [Zestril] 10 mg PO DAILY 02/26/24 02/26/24 metFORMIN HCL [Glucophage] 1,000 mg PO BID 02/26/24 02/26/24 Allergies Allergy/AdvReac Type Severity Reaction Status Date / Time No Known Allergies Allergy Verified 08/14/24 09:47 Review of Systems ROS Statement: Those systems with pertinent positive or pertinent negative responses have been documented in the HPI. ROS Other: All systems not noted in ROS Statement are negative. Past Medical History Past Medical History: Diabetes Mellitus Additional Past Medical History / Comment(s): back pain History of Any Multi-Drug Resistant Organisms: None Reported Past Surgical History: Cholecystectomy Past Psychological History: No Psychological Hx Reported Smoking Status: Never smoker Past Alcohol Use History: None Reported Past Drug Use History: None Reported General Exam Limitations: no limitations General appearance: alert, in no apparent distress Head exam: Present: atraumatic, normocephalic, normal inspection Eye exam: Present: PERRL, EOMI, conjunctival injection, other (Average right intraocular pressure 20. Fluorescein stain negative for corneal abrasions or ulcerations. Visual acuity 20/25 bilaterally). Absent: normal appearance (There is a small subconjunctival hemorrhage on superior aspect of eye), scleral icterus, periorbital swelling ENT exam: Present: normal exam, mucous membranes moist, TM's normal bilaterally Neck exam: Present: normal inspection. Absent: tenderness, meningismus, lymphadenopathy Respiratory exam: Present: normal lung sounds bilaterally. Absent: respiratory distress, wheezes, rales, rhonchi, stridor Cardiovascular Exam: Present: regular rate, normal rhythm, normal heart sounds. Absent: systolic murmur, diastolic murmur, rubs, gallop, clicks Neurological exam: Present: alert, oriented X3, CN II-XII intact Psychiatric exam: Present: normal affect, normal mood Skin exam: Present: warm, dry, intact, normal color. Absent: rash Course Vital Signs 08/14/24 09:45 Temperature 98 F Pulse Rate 97 Respiratory 20 Rate Blood Pressure 122/80 O2 Sat by Pulse 97 Oximetry Medical Decision Making - Medical Decision Making Was pt. sent in by a medical professional or institution (, PA, [employer] SERVICE MANAGER, urgent care, hospital, or [facility]...) When possible be specific @ -No Did you speak to anyone other than the patient for history (EMS, parent, family, police, friend...)? What history was obtained from this source @ -No Did you review nursing and triage notes (agree or disagree)? Why? @ -I reviewed and agree with nursing and triage notes Were old charts reviewed (outside hosp., previous admission, EMS record, old EKG, old radiological studies, urgent care reports/EKG's, [facility] records)? Report findings @ -No old charts were reviewed Differential Diagnosis (chest pain, altered mental status, abdominal pain women, abdominal pain men, vaginal bleeding, weakness, fever, dyspnea, syncope, headache, dizziness, GI bleed, back pain, seizure, CVA, palpatations, mental hea lth, musculoskeletal)? @ -Subconjunctival hemorrhage, corneal abrasion, corneal ulceration, giant cell arteritis, hyphema EKG interpreted by me (3pts min.). @ -None X-rays interpreted by me (1pt min.). @ -None done CT interpreted by me (1pt min.). @ -CT brain reveals no acute process U/S interpreted by me (1pt. min.). @ -None done What testing was considered but not performed or refused? (CT, X-rays, U/S, labs)? Why? @ -None What meds were considered but not given or refused? Why? @ -None Did you discuss the management of the patient with other professionals (professionals i.e. , PA, KOSHER DI[employer]ARY SERVICE MANAGER, lab, RT, psych nurse, social staff worker, millstone cleaner, teacher, radio electronics officer, ed case manager)? Give summary @ -No Was smoking cessation discussed for >3mins.? @ -No Was critical care preformed (if so, how long)? @ -No Were there social determinants of health that impacted care today? How? (Homelessness, low income, unemployed, alcoholism, drug addiction, transportation, low edu. Level, literacy, decrease access to med. care, skilled nursing, rehab)? @ -No Was there de-escalation of care discussed even if they declined (Discuss DNR or withdrawal of care, Hospice)? DNR status @ -No What co-morbidities impacted this encounter? (DM, HTN, Smoking, COPD, CAD, Cancer, CVA, ARF, Chemo, Hep., AIDS, mental health diagnosis, sleep apnea, morbid obesity)? @ -None Was patient admitted / discharged? Hospital course, mention meds given and route, prescriptions, significant lab abnormalities, going to OR and other pertinent info. @ -Discharge. 54-year-old female with redness to right eye with associated headache x 2 days. Vital signs within acceptable limits. Average right intraocular pressure 20. Fluorescein stain negative. No temporal tenderness. Visual acuity 20/30 bilaterally. Pain reveals no acute process. Discussed diagnosis of subconjunctival hemorrhage discussed with patient. Appropriate return precautions and follow-up care discussed. Case was discussed with my ED attending Dr. Carrizales. Undiagnosed new problem with uncertain prognosis? @ -No Drug Therapy requiring intensive monitoring for toxicity (Heparin, Nitro, Insulin, Cardizem)? @ -No Were any procedures done? @ -No Diagnosis/symptom? @ -Subconjunctival hemorrhage of right eye Acute, or Chronic, or Acute on Chronic? @ -Acute Uncomplicated (without systemic symptoms) or Complicated (systemic symptoms)? @ -Uncomplicated Side effects of treatment? @ -No Exacerbation, Progression, or Severe Exacerbation? @ -No Poses a threat to life or bodily function? How? (Chest pain, [place], [place], pneumonia, PE, COPD, DKA, ARF, appy, cholecystitis, CVA, Diverticulitis, Homicidal, Suicidal, threat to staff... and all critical care pts) @ -No Disposition Clinical Impression: Subconjunctival hemorrhage Disposition: HOME SELF-CARE Condition: Stable Instructions (If sedation given, give patient instructions): Subconjunctival Hemorrhage (ED) Additional Instructions: Please return to the Emergency Department if symptoms worsen or any other concerns. Is patient prescribed a controlled substance at d/c from ED?: No Referrals: Delisa Berg MD [Primary Care Provider] - 1-2 days Time of Disposition: 11:40
[2024-08-14] MEDS: PROPARACAINE 0.5% OPHTH DROPS 15 ML BTL RIGHT EYE STA (10:26)
[2024-08-14] MEDS: FLUORESCEIN STRIPS 1 MG STRIP RIGHT EYE ONE (10:27)
--- NOTE | 2024-08-14 11:22 | CT ---
EXAMINATION TYPE: CT brain wo con CT DLP: 1095.4 mGycm, Automated exposure control for dose reduction was used. DATE OF EXAM: 08/14/2024 11:10 AM COMPARISON: None. CLINICAL INDICATION:Female, 54 years old with history of headache x 2 days, Headache x 2 days TECHNIQUE: Brain: Multiple axial CT images of the brain were obtained without IV contrast. . Coronal and sagitta l reformats reviewed. FINDINGS: Brain: Extra-axial spaces: No abnormal extra-axial fluid collections. Ventricular system: Within normal limits Cerebral parenchyma: No acute intraparenchymal hemorrhage or mass effect. The castillo-white junction is well differentiated. Cerebellum: Unremarkable. Mass effect: No evidence of midline shift. Intracranial vasculature: unremarkable Soft tissues: Normal. Calvarium/osseous structures: No depressed skull fracture. Paranasal sinuses and mastoid air cells: Mastoid air cells are clear. Air-fluid level with mucosal th ickening in the left sphenoid sinus. Visualized orbits: Orbital contents are intact. IMPRESSION: 1. No acute intracranial process. 2. Left sphenoid sinus air-fluid level with mucosal thickening. Correlate for acute sinusitis. [facility], , 08/14/2024 11:20 AM
[2024-08-14 12:10] VITALS: BP 145/83; PULSE 96; RESP 18
== END 2024-08-14 12:10 | disposition home or self-care (01) ==
LOC: EC 09:15
DX: H11.31 Conjunctival hemorrhage, right eye (principal)
CPT/HCPCS: 70450; 99283